=== PATIENT | female | born 1990 | race Caucasian/White ===

== ENCOUNTER 2024-07-21 13:42 | Emergency (ER) | payer SELFPAY ==
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
[2024-07-21] MEDS ORDERED: TORAdol 30 mg Injection ONE (16:55)
[2024-07-21] MEDS: TORAdol 30 mg Injection IM ONE (16:57)
[2024-07-21 17:05] VITALS: PULSE 96; RESP 18
[2024-07-21 17:34] VITALS: O2SAT 99
[2024-07-21 18:37] VITALS: BP 131/90
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
== END 2024-07-21 18:55 | disposition short-term general hospital (02) ==
LOC: ED 13:42
DX: Z04.1 Encounter for examination and observation following transport accident (principal); S32.441A Displaced fracture of posterior column [ilioischial] of right acetabulum, initial encounter for closed fracture; V43.63XA Car passenger injured in collision with pick-up truck in traffic accident, initial encounter; R51.9 Headache, unspecified; M54.2 Cervicalgia; M79.662 Pain in left lower leg; M79.604 Pain in right leg
CPT/HCPCS: 70450; 72125; 72128; 72131; 73502; 73590; 96372; 99285; 99291; J1885